=== PATIENT | male | born 1965 | race Caucasian/White ===

== ENCOUNTER 2017-03-23 11:21 | Emergency (ER) | payer MEDICAID ==
[2017-07-15] MEDS ORDERED: PLAVIX75 MG PO (15:01)
[2017-07-15] MEDS ORDERED: LIPITOR DPS20 MG PO (15:01)
[2017-07-15] MEDS ORDERED: NEURONTIN DPS100 MG PO (15:01)
[2017-07-15] MEDS ORDERED: CARVEDILOL25 MG PO (15:01)
[2017-07-15] MEDS ORDERED: ASA CHILDREN'S81 MG PO (15:02)
[2017-07-15] MEDS ORDERED: PEPCID DPS20 MG PO (15:02)
[2017-07-15] MEDS ORDERED: LANTUS100 UNITS/ SQ (15:02)
[2017-07-15] MEDS ORDERED: SERTRALINE HCL100 MG PO (15:02)
[2017-07-15] MEDS ORDERED: METAMUCIL SF P3.4 GM PO (15:03)
[2017-07-15] MEDS ORDERED: NOVOLOG100 UNIT/2 SQ (15:04)
[2017-07-15] MEDS ORDERED: KLOR-CON M2020 ME1 PO (15:04)
[2017-07-15] MEDS ORDERED: ZESTRIL DPS20 MG PO (15:04)
[2017-07-15] MEDS ORDERED: LASIX DPS40 MG PO (15:04)
[2017-07-15] MEDS ORDERED: TEMOVATE O.05%15 GM TP (15:05)
[2017-07-15] MEDS ORDERED: LIDEX 0.05% OIN60 GM TP (15:05)
[2017-07-15] MEDS ORDERED: TYLENOL DPS325 MG PO (15:06)
[2017-07-15] MEDS ORDERED: MIRALAX PACKET17 GM PO (15:06)
[2017-07-15] MEDS ORDERED: TUMS200 MG PO (15:06)
[2017-07-15] MEDS ORDERED: MILK OF MAGNESI10 ML PO (15:06)
== END 2017-03-23 12:00 | disposition home or self-care (01) ==
DX: L02.412 Cutaneous abscess of left axilla (principal); E11.9 Type 2 diabetes mellitus without complications; I10 Essential (primary) hypertension; Z95.0 Presence of cardiac pacemaker

== ENCOUNTER 2017-07-03 12:36 | Inpatient (IN) | payer MEDICAID ==
[~2017-07-03] VITALS: Ht 167.6 cm; Wt 96.9 kg
--- NOTE | ~2017-07-03 | WND ---
ADMIT: 07/03/2017 RM/LOC: [facility] MR#: [id number] [address] DIVINE ADI Pinto [address] [place] [address] Wound Care Clinic SEX: M AGE: 51 : 1965 DATE OF VISIT: 07/08/2017 TIME IN: 1520 hours. TIME OUT: 1530 hours. REASON FOR VISIT: Evaluation and treatment of unstageable pressure ulceration, left buttocks. Request for wound care from Dr. Villanueva. HISTORY OF PRESENT ILLNESS: This is an established Wound Care patient, who was initially seen in December 2011 for sacral pressure ulceration. This was eventually healed. He was again followed starting on 06/26/2017 after he was seen in the emergency room. He is a 51-year-old male, who is paraplegic following complications of heart surgery. He had presented to the emergency room after he had noticed blood after going to the bathroom. It was noted that he had an ulceration to his buttocks. He has been paraplegic since 2002 due to complications of heart surgery. He previously had ulcerations that required an extended stay in the hospital secondary to it. He was seen also inpatient, placed on a Clinitron bed. Current treatment to the area is Aquacel Ag covered with a thick hydrocolloid, changed twice a week. Also pressure relief methods as repositioning off the area, chair air cushion when he is sitting up. Heels floated off surfaces. PAST MEDICAL HISTORY: 1. Type 2 diabetes mellitus. 2. History of spinal cord injury status post aortic coarctation surgery. 3. History of stroke in 2004 and 2008. 4. Residual left arm weakness. 5. Swallowing difficulties. 6. Neurogenic bladder with self-catheterization. 7. Depression. 8. Hypertension. 9. Paraplegia. 10.History of epididymitis. 11.Left scrotal orchiectomy. 12.Scrotoplasty due to avascular necrosis of the testicle. 13.History of sacral pressure ulcer. 14.History of multiple urinary tract infections. 15.Anxiety. 16.Chronic constipation. ALLERGIES: No known medication allergies. CURRENT MEDICATIONS: Per the MAR. Please see the MAR for further details. 1. Children's aspirin. 2. Cipro. 3. Coreg. 4. Klor-Con. ADMIT: 07/03/2017 RM/LOC: [facility] MR#: [id number] [address] ADI HASKINS [facility] [place] [address] Wound Care Clinic SEX: M AGE: 51 : 1965 5. Lasix. 6. Lipitor. 7. Metamucil. 8. Neurontin. 9. Pepcid. 10.Plavix. 11.Zestril. 12.Zoloft. 13.Levemir. 14.Lovenox. 15.NovoLog sliding scale. 16.Lidex. 17.Temovate. 18.Vancomycin. P.R.N. medications: 1. Colace. 2. Glutose. 3. Milk of magnesia. 4. MiraLax. 5. Tylenol. 6. DuoNeb. 7. Dulcolax. 8. Tylenol suppository. 9. Nitrostat. FAMILY HISTORY: Diabetes and heart disease in mother. Breast cancer in two sisters. SOCIAL HISTORY: . Residing in [place] with relatives. Currently on disability. No history of tobacco or alcohol use. No illicit drug use. REVIEW OF SYSTEMS: He is examined in [facility] unit, where he is on his Clinitron bed. He is awake, alert, and oriented x3. He denies any recent fever or chills. No nausea or vomiting. No cough, cold, or chest pain. He states he is quite comfortable and feels better overall. No pain to his bottom. PHYSICAL EXAMINATION: VITAL SIGNS: 96.8, 59, 16, blood pressure 121/67, O2 sats on room air is 97%. Focused exam to his bottom shows an area of induration that measures 6 cm x 6 cm. He has three wounds. One wound measures 1.5 cm x 2.4 cm with a depth of 0.2 cm, 40% of the wound base shows yellow eschar and 60% is pink tissue. Next to this, is one that measures 1.7 cm x 1.7 cm covered with brown eschar superficial skin surface. The largest one measures 2 cm x 0.7 with a depth of 1.5 cm. There is a large amount of serosanguineous drainage. This has a red ADMIT: 07/03/2017 RM/LOC: S.327 [facility] MR#: [id number] [address] [place] [id number] ADI HASKINS [address] [place] [address] Wound Care Clinic SEX: M AGE: 51 : 1965 moist wound base and adjacent to this, is a smaller one that measures 0.2 x 0.3 with a depth of 0.1 cm with a pink base. ASSESSMENT: Unstable pressure ulcerations to left buttock. TREATMENT AND PLAN: He will continue on a Clinitron bed. Wounds were washed well with warm soapy water, rinsed, and patted dry. Aquacel was placed in the wound bases covered with thick hydrocolloid. We will continue this twice weekly. We will continue with all pressure relief methods. Recommended chair air cushion, reposition off the wound, and heels floated. Thank you for this referral and Wound will continue to follow. Anel Hernández APRN/ dima JOB #: [id number] CC: Dasia Villanueva, Attending Physician Dasia Villanueva, Family Physician
--- NOTE | 2017-07-09 15:04 | NUR ---
PATIENT NOTE ADI HAS BEEN ADMITTED TO [facility] FOR CONTINUED I.V.A.B THERAPY ALONG WITH PHYSICAL AND OCCUPATIONAL THERAPY. ADI TAPIA HAS STAGE 2 PRESSURE ULCER TO HIS BUTTOCKS THEREFORE HE IS CURRENTLY NEEDING A CLINITRON BED. HE ALSO A PARAPLEGIC AND USES A SLIDE BOARD TO GET IN AND OUT OF BED, W/C AND COMMODE. HE DOES HAVE CARE PROVIDERS AT HOME THROUGH [facility]. THE OVERALL GOAL IS FOR THE ULCER TO HEAL ENOUGH WHERE HE CAN USE THE SLIDE BOARD AGAIN AND RETURN TO HOME. THERAPY WILL WORK ON UPPER BODY STRENGTHENING. ADI LIVES HERE IN [place], HIS SISTER ALSO LIVES WITH HIM AND IS ONE OF HIS CARE GIVERS. HE IS HERE UNDER HIS MEDICAID WELLCARE WHO HAS APPROVED HIM TO BE HERE WITH A REVIEW ON 07/10. HE IS A ALERT, ORIENTED AND VERY PLEASANT 51 YEAR OLD. SOCIAL WORK WILL FOLLOW AND ASSIST WITH D/C PLANNING AND WITH CONCERNS OR NEEDS THAT MAY ARISE.
--- NOTE | 2017-07-12 12:01 | NUR ---
1115 pt bs [id number], order stated to give 28u plus another 20u at 12n for novolog then call , dr carmina baez states monitor pt,
--- NOTE | 2017-07-13 16:07 | NUR ---
PATIENT NOTE ADI RECEIVED D/C TO HOME ORDERS TODAY AT HIS 'S APT. HE STATED THAT HE WANTS TO GO HOME 07/14. I EXPLAINED TO HIM THAT HIS MEDICAID WELLCARE HAS APPROVED HIM THROUGH 07/17 BUT HE STATED, "I WANT TO GO HOME." I ASKED HIM IF I COULD CALL HANNAH, HIS CLIN APPLICATION SPECIALIST THROUGH [facility] AND HE STATED, "YES PLEASE DO." I DID CALL HANNAH AND LET HIM KNOW AND HE WAS THANKFUL FOR THE CALL. ADI HAS ALL NECESSARY EQUIPMENT AT HOME. HIS TRANSPORTATION HOME WITH BE FROM HIS PRIMARY CAREGIVER. RAF MCKEON, NURSE [place] DID CALL AND VISIT WITH KAM FOFANA HERE AT SKILLED CARE AND SHE TOLD BRIGIDO THAT SHE WANTED [facility] FOLLOWING HIM AT HOME FOR CONTINUED WOUND CARE. I VISISTED WITH ADI ON THIS AND HE AGREED. I CALLED AND FAXED THE C REFERRAL TO RE AT [facility]. I WISHED HIM WELL AT HOME.
--- NOTE | 2017-07-14 15:44 | NUR ---
07/14/17 1445 PTS [facility] SENT WITH PT TO HOME, [facility] PACKET SENT WITH PT TO GIVE TO THEM WHEN ADMITTED, CLERK MELLO
[2017-07-15] MEDS ORDERED: LIPITOR DPS20 MG PO (15:01)
[2017-07-15] MEDS ORDERED: PLAVIX75 MG PO (15:01)
[2017-07-15] MEDS ORDERED: CARVEDILOL25 MG PO (15:01)
[2017-07-15] MEDS ORDERED: NEURONTIN DPS100 MG PO (15:01)
[2017-07-15] MEDS ORDERED: SERTRALINE HCL100 MG PO (15:02)
[2017-07-15] MEDS ORDERED: ASA CHILDREN'S81 MG PO (15:02)
[2017-07-15] MEDS ORDERED: LANTUS100 UNITS/ SQ (15:02)
[2017-07-15] MEDS ORDERED: PEPCID DPS20 MG PO (15:02)
[2017-07-15] MEDS ORDERED: METAMUCIL SF P3.4 GM PO (15:03)
[2017-07-15] MEDS ORDERED: ZESTRIL DPS20 MG PO (15:04)
[2017-07-15] MEDS ORDERED: NOVOLOG100 UNIT/2 SQ (15:04)
[2017-07-15] MEDS ORDERED: LASIX DPS40 MG PO (15:04)
[2017-07-15] MEDS ORDERED: KLOR-CON M2020 ME1 PO (15:04)
[2017-07-15] MEDS ORDERED: LIDEX 0.05% OIN60 GM TP (15:05)
[2017-07-15] MEDS ORDERED: TEMOVATE O.05%15 GM TP (15:05)
[2017-07-15] MEDS ORDERED: TYLENOL DPS325 MG PO (15:06)
[2017-07-15] MEDS ORDERED: MIRALAX PACKET17 GM PO (15:06)
[2017-07-15] MEDS ORDERED: TUMS200 MG PO (15:06)
[2017-07-15] MEDS ORDERED: MILK OF MAGNESI10 ML PO (15:06)
== END 2017-07-14 15:43 | disposition home health service (06) | DRG 872 ==
LOC: SNU 15:12
PROVIDERS: ADMIT Internal Medicine
PROC: F08Z4ZZ Home Management Treatment (ICD-10-PCS; principal; 2017-07-10)
PROC: F06ZDZZ Swallowing Dysfunction Treatment (ICD-10-PCS; principal; 2017-07-10)
PROC: F07M3ZZ Motor Function Treatment of Musculoskeletal System - Whole Body (ICD-10-PCS; principal; 2017-07-10)
DX: A41.2 Sepsis due to unspecified staphylococcus (principal); L89.320 Pressure ulcer of left buttock, unstageable; I11.0 Hypertensive heart disease with heart failure; G82.20 Paraplegia, unspecified; I50.42 Chronic combined systolic (congestive) and diastolic (congestive) heart failure; I42.9 Cardiomyopathy, unspecified; N39.0 Urinary tract infection, site not specified; N31.9 Neuromuscular dysfunction of bladder, unspecified; L21.9 Seborrheic dermatitis, unspecified; B96.20 Unspecified Escherichia coli [E. coli] as the cause of diseases classified elsewhere; E11.65 Type 2 diabetes mellitus with hyperglycemia; B95.7 Other staphylococcus as the cause of diseases classified elsewhere; Z86.73 Personal history of transient ischemic attack (TIA), and cerebral infarction without residual deficits; Z11.1 Encounter for screening for respiratory tuberculosis; Z23 Encounter for immunization